=== PATIENT | female | born 1975 | race Caucasian/White ===

== ENCOUNTER 2016-07-29 16:02 | Emergency (ER) | payer SELFPAY ==
[2016-07-29] MEDS ORDERED: Acetaminophen/oxyCODONE 325-5 MG Tab PO STA (16:12)
[2016-07-29] MEDS ORDERED: Aspirin 81 MG Tab.Chew PO ONE (16:13)
[2016-07-29] MEDS ORDERED: Ondansetron 4 MG Tab.DIS PO ONE ×2 (16:14→17:07)
[2016-07-29] MEDS ORDERED: Aluminum Hydroxide/Magnesium Hydroxide Susp 30 ML Cup PO STA (16:14)
--- NOTE | 2016-07-29 16:20 | EDM.PDOC ---
ED HPI GENERAL MEDICAL PROBLEM - General Chief Complaint: Cardiovascular Problem Stated Complaint: CHEST PAIN Time Seen by Provider: 07/29/16 16:10 Source of Information: Reports: Patient, Old Records History Limitations: Reports: No Limitations - History of Present Illness INITIAL COMMENTS - FREE TEXT/NARRATIVE: 41 yo female developed mild sternal pain earlier today. Took a nap and her pain seemed a little better. Since then the pain has worsened. Is not SOB, or diaphoretic, but does have some nausea without vomiting. Took ibuprofen 800 mg po about an hour ago without relief. No cardiac history. No calf pain. Pain is worse with pressing over sternum or taking deep breaths. Onset: Today Onset Date: 07/29/16 Duration: Hour(s):, Getting Worse Location: Reports: Chest Quality: Reports: Ache Severity: Moderate Improves with: Reports: Rest Worsens with: Reports: Other (breathing or pressing on area. ) Context: Reports: Other (unknown) Associated Symptoms: Reports: Chest Pain, Nausea/Vomiting (No vomiting.). 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 - Past Surgical History Female Surgical History: Reports: Section, Hysterectomy Social & Family History - Family History Musculoskeletal: Reports: None Neurological: Reports: None Oncologic: Reports: None - Tobacco Use Smoking Status *Q: Current Every Day Smoker Years of Tobacco use: 20 Packs/Tins Daily: 1 - Alcohol Use Days Per Week of Alcohol Use: 0 - Recreational Drug Use Recreational Drug Use: No ED ROS GENERAL - Review of Systems Review Of Systems: See Below Constitutional: Reports: No Symptoms HEENT: Reports: No Symptoms Respiratory: Reports: No Symptoms Cardiovascular: Reports: Chest Pain Endocrine: Reports: No Symptoms GI/Abdominal: Reports: Nausea. Denies: Abdominal Pain, Black Stool, Bloody Stool, Hematemesis, Hematochezia, Vomiting : Reports: No Symptoms Musculoskeletal: Reports: No Symptoms Skin: Reports: No Symptoms Neurological: Reports: No Symptoms Psychiatric: Reports: No Symptoms ED EXAM, GENERAL - Physical Exam Exam: See Below Exam Limited By: No Limitations General Appearance: Alert, WD/WN, No Apparent Distress, Anxious, Obese Eye Exam: Bilateral Eye: Normal Inspection Ears: Normal External Exam, Normal Canal, Hearing Grossly Normal Ear Exam: Bilateral Ear: Auricle Normal, Canal Normal Nose: Normal Inspection, Normal Mucosa, No Blood Throat/Mouth: Normal Inspection, Normal Lips, Normal Teeth, Normal Oropharynx, Normal Voice, No Airway Compromise Head: Atraumatic, Normocephalic Neck: Normal Inspection, Supple, Non-Tender Respiratory/Chest: No Respiratory Distress, Lungs Clear, Normal Breath Sounds, No Accessory Muscle Use, Other (sternal tenderness noted.). No: Chest Non- Tender Cardiovascular: Regular Rate, Rhythm GI/Abdominal: Normal Bowel Sounds, Soft, Non-Tender, No Distention Back Exam: Normal Inspection. No: CVA Tenderness (R), CVA Tenderness (L) Extremities: Normal Inspection, Normal Range of Motion, Non-Tender, Pedal Edema (Trace bilateral ankle edema) Neurological: Alert, Oriented, CN II-XII Intact, Normal Cognition, Normal Gait, No Motor/Sensory Deficits Psychiatric: Anxious, Tearful Skin Exam: Warm, Dry, Intact, Normal Color, No Rash Lymphatic: No Adenopathy EKG INTERPRETATION EKG Date: 07/29/16 Time: 16:05 Rhythm: NSR Rate (beats/min): 95 [place]: normal P-wave: present QRS: normal ST-T: normal QT: normal Comparison: NA - no prior EKG Course - Vital Signs Text/Narrative:: Percocet 1 po, ASA 324 mg po, Maalox 30 ml po, Zofran ODT 4 mg SL-nausea better , chest pain partially resolved. Last Recorded V/S: Last Vital Signs Temp 36.3 C 07/29/16 16:05 Pulse 97 07/29/16 16:38 Resp 12 07/29/16 16:38 BP 137/71 07/29/16 16:38 Pulse Ox 99 07/29/16 16:38 - Orders/Labs/Meds Orders: Active Orders 24 hr Category Date Time Status Cardiac Monitoring [RC] .As Directed Care 07/29/16 16:13 Active EKG Documentation Completion [RC] ASDIRECTED Care 07/29/16 16:05 Active D-DIMER QUANTITATIVE [COAG] Stat Lab 07/29/16 16:35 Received TROPONIN I [CHEM] Stat Lab 07/29/16 16:15 Received EKG 12 Lead [EK] Routine Ther 07/29/16 16:04 Ordered Meds: Medications Discontinued Medications Generic Name Dose Route Start Last Admin Trade Name Freq PRN Reason Stop Dose Admin Al Hydroxide/Mg Hydroxide 30 ml 07/29/16 16:14 07/29/16 16:21 Mag-Al Susp PO 07/29/16 16:15 30 ml NOW STA Administration Aspirin 324 mg 07/29/16 16:13 07/29/16 16:22 Aspirin PO 07/29/16 16:14 324 mg ONETIME ONE Administration Ondansetron HCl 4 mg 07/29/16 16:14 07/29/16 16:21 Zofran Odt PO 07/29/16 16:15 4 mg ONETIME ONE Administration Oxycodone/Acetaminophen 1 tab 07/29/16 16:12 07/29/16 16:20 Percocet 325-5 Mg PO 07/29/16 16:13 1 tab ONETIME STA Administration Departure - Departure Time of Disposition: 17:00 Disposition: Still A Patient 30 Condition: fair Clinical Impression: Acute costochondritis - My Orders Last 24 Hours: My Active Orders 07/29/16 16:04 EKG 12 Lead [EK] Routine 07/29/16 16:05 EKG Documentation Completion [RC] ASDIRECTED 07/29/16 16:13 Cardiac Monitoring [RC] .As Directed 07/29/16 16:15 TROPONIN I [CHEM] Stat 07/29/16 16:35 D-DIMER QUANTITATIVE [COAG] Stat - Assessment/Plan Last 24 Hours: My Active Orders 07/29/16 16:04 EKG 12 Lead [EK] Routine 07/29/16 16:05 EKG Documentation Completion [RC] ASDIRECTED 07/29/16 16:13 Cardiac Monitoring [RC] .As Directed 07/29/16 16:15 TROPONIN I [CHEM] Stat 07/29/16 16:35 D-DIMER QUANTITATIVE [COAG] Stat
[2016-07-29] MEDS ORDERED: Acetaminophen/oxyCODONE 325-5 MG Tab PO ONE (17:07)
[2016-07-29 17:25] VITALS: BP 147/83
== END 2016-07-29 17:20 | disposition home or self-care (01) ==
LOC: FB.ED 16:02
DX: M94.0 Chondrocostal junction syndrome [Tietze] (principal); F17.210 Nicotine dependence, cigarettes, uncomplicated; Z88.0 Allergy status to penicillin; Z88.8 Allergy status to other drugs, medicaments and biological substances; Z87.442 Personal history of urinary calculi; Z90.710 Acquired absence of both cervix and uterus
CPT/HCPCS: 36415; 84484; 85379; 93005; 99285; A9270; 99283

== ENCOUNTER 2016-07-30 14:25 | Emergency (ER) | payer SELFPAY ==
[2016-07-30] MEDS ORDERED: LORazepam 1 MG Tab PO STA (14:31)
[2016-07-30] MEDS ORDERED: Ketorolac 60 MG/2 ML SDV IM ONE (14:34)
[2016-07-30] MEDS ORDERED: Albuterol/Ipratropium 3.0-0.5 MG/3 ML Neb Soln NEB ONE (14:51)
[2016-07-30] MEDS ORDERED: HYDROmorphone 2 MG/ML SDV IM ONE (15:31)
[2016-07-30 16:00] VITALS: BP 161/83
[2016-07-30] MEDS ORDERED: predniSONE 20 MG Tab PO ONE (16:09)
[2016-07-30] MEDS ORDERED: ALPRAZolam 0.5 MG Tab PO ONE (16:09)
--- NOTE | 2016-07-31 11:30 | CR ---
INDICATION: Cough, chest pain. CHEST: PA and lateral views of the chest revealed overlying EKG lead snaps. The heart, mediastinum, and bony thorax were unremarkable. An active infiltrate or effusion was not identified. There is evidence of exogenous obesity. IMPRESSION: 1. No acute process. 2. Exogenous obesity. MTDD
--- NOTE | 2016-07-31 16:13 | ER ---
DATE SEEN: 07/30/2016 CHIEF COMPLAINT: Chest pain. HISTORY OF PRESENT ILLNESS: A 41-year-old female complaining of chest pain. This has been on for 2 days. She was here yesterday for the same reason. Pain is moderate to severe, associated with some tightness and worse with breathing deeply. No trauma. She has taken Percocet with minimal relief. REVIEW OF SYSTEMS: Denies any fever or chills. She has been under a lot of stress lately due to two jobs. SOCIAL HISTORY: Smoker. ALLERGIES: Penicillin and Benadryl. PHYSICAL EXAMINATION: VITAL SIGNS: Blood pressure is 161/83, pulse is 92, and oxygenation 99% on room air. ENT: Negative. CHEST: Reproducible tenderness. LUNGS: Clear with the exception of wheezing in the lower bases posteriorly. MENTAL STATUS: Anxious, tearful, but answers question appropriately. SKIN: There is red erythematous rash noted in the arms and the upper neck area. LAB STUDIES: She had normal labs including a negative troponin and D-dimer. Chest x-ray was unremarkable. EKG normal. IMPRESSION: 1. Chest wall pain. 2. Anxiety disorder. PLAN: 1. Ketorolac and Dilaudid IM. 2. Lorazepam 1 mg orally. I reviewed the possibilities of the fibromyalgia or anxiety. Initially she was resistant to this diagnosis and was upset with me, but after a thorough explanation that I did not find any organic cause of the pain, she slowly accepted it, and I sent her home on Xanax 0.5 mg b.i.d. p.r.n. and prednisone 20 mg b.i.d. Work note was given. Time seen was 1500 hours. She was advised to see her doctor tomorrow. Return with any worsening symptoms. /[id number] DAVID/HEATHER MORGAN
== END 2016-07-30 16:25 | disposition home or self-care (01) ==
LOC: FB.ED 14:25
DX: R07.89 Other chest pain (principal); F41.9 Anxiety disorder, unspecified; Z88.0 Allergy status to penicillin; Z88.8 Allergy status to other drugs, medicaments and biological substances; Z87.891 Personal history of nicotine dependence
CPT/HCPCS: 36415; 71020; 80048; 84484; 85025; 85379; 93005; 94664; 96372; 99285; A9270; J1170; J1885; J7620; 99284

== ENCOUNTER 2016-10-27 08:25 | Day surgery (SDC) | payer SELFPAY ==
[2016-10-27] MEDS ORDERED: Lactated Ringers 1,000 ML IV SCH (08:30)
[2016-10-27] MEDS ORDERED: Lidocaine 2% 100 MG/5 ML Syringe IVPUSH ONE (10:30)
[2016-10-27] MEDS ORDERED: Midazolam 1 MG/ML 2 ML SDV IV ONE (10:30)
[2016-10-27] MEDS ORDERED: Propofol 200 MG/20 ML SDV IV ONE (10:30)
[2016-10-27 12:08] VITALS: BP 128/80
--- NOTE | 2016-10-30 07:41 | PCM.OPNOTE ---
- General Post-Op/Procedure Note Date of Surgery/Procedure: 10/27/16 Operative Procedure(s): egd with bx Findings: gastroduodenitis Pre Op Diagnosis: epigastric abd pain Post-Op Diagnosis: gastroduodenitis Anesthesia Technique: AMIRA Primary Surgeon: Earl Khan Anesthesia Provider: Bess Prater Pathology: stomach and duodenum Complications: None Condition: Good Free Text/Narrative:: see dictation
--- NOTE | 2016-10-30 08:32 | OR ---
DATE OF OPERATION: 10/27/2016 SURGEON: Earl Khan MD PREOPERATIVE DIAGNOSIS: Epigastric right upper quadrant abdominal pain. POSTOPERATIVE DIAGNOSIS: Gastroduodenitis. PROCEDURE PERFORMED: Upper endoscopy with cold forceps biopsy. INDICATIONS FOR PROCEDURE: This is a 41-year-old white female, who presented with the above-mentioned complaint. Her workup to date has been negative. She has been offered and accepted an EGD. DESCRIPTION OF PROCEDURE: After an excellent IV sedation was administered, the bite block was inserted. Flexible endoscope was passed without difficulty down the patient's esophagus and stomach. The stomach was insufflated and scope was passed through the pylorus to the second portion of the duodenum and slowly withdrawn. The following findings were noted. In the duodenum, especially in the first portion marked duodenitis, biopsies were taken. Stomach, marked gastritis, biopsies were taken as well as GE junction measured 40 cm and the esophagus was essentially unremarkable. Stomach was deflated, scope was removed. The patient tolerated the procedure well, and was taken to recovery room in good condition. /[id number] /NAJMAL
== END 2016-10-27 11:38 | disposition home or self-care (01) ==
LOC: FB.SDS 08:25
PROVIDERS: ATTEND Surgery
DX: K29.50 Unspecified chronic gastritis without bleeding (principal); J45.909 Unspecified asthma, uncomplicated; Z88.0 Allergy status to penicillin; Z88.2 Allergy status to sulfonamides; Z88.8 Allergy status to other drugs, medicaments and biological substances; F17.210 Nicotine dependence, cigarettes, uncomplicated; Z79.899 Other long term (current) drug therapy
CPT/HCPCS: 00740; 43239; 88305; 88342; J2250; J2704; J7120

== ENCOUNTER 2016-11-22 07:17 | Day surgery (SDC) | payer SELFPAY ==
[~2016-11-22 07:17] MED LIST: Lactated Ringers 1,000 ML IV SCH
[2016-11-22] MEDS ORDERED: Ondansetron 4 MG/2 ML SDV IVPUSH ONE (08:40)
[2016-11-22] MEDS ORDERED: Propofol 200 MG/20 ML SDV IV ONE (08:40)
[2016-11-22] MEDS ORDERED: Midazolam 1 MG/ML 2 ML SDV IV ONE (08:40)
--- NOTE | 2016-11-22 09:16 | PCM.OPNOTE ---
- General Post-Op/Procedure Note Date of Surgery/Procedure: 11/22/16 Operative Procedure(s): c scope with bx Findings: transverse colon polyp Pre Op Diagnosis: hx of abd pain and cramping Post-Op Diagnosis: transverse colon polyp Anesthesia Technique: MAC Primary Surgeon: Earl Khan Anesthesia Provider: Lora Martinez Pathology: random colon bx transverse colon polyp Complications: None Condition: Good Free Text/Narrative:: see dictation
[2016-11-22 10:01] VITALS: BP 131/87
--- NOTE | 2016-11-22 13:22 | OR ---
DATE OF OPERATION: 11/22/2016 SURGEON: Earl Khan MD PROCEDURE PERFORMED: Colonoscopy with cold forceps biopsy. PREOPERATIVE DIAGNOSIS: History of crampy abdominal pain. POSTOPERATIVE DIAGNOSIS: Transverse colon polyp. Otherwise normal colonic exam. INDICATIONS FOR PROCEDURE: This is a 41-year-old white female, who is referred with a history of abdominal pain which is crampy in nature. It is located primarily in the left upper quadrant. She has undergone a previous upper endoscopy which has demonstrated chronic gastritis. This has been treated for over a month and she continues to have a crampy abdominal pain. She was therefore offered and accepted a colonoscopy. DESCRIPTION OF PROCEDURE: After an excellent IV sedation was administered, a digital rectal exam was performed. No marked abnormality was noted. The flexible colonoscope was inserted and easily advanced to the cecum without difficulty. The following findings were noted. Ascending colon, unremarkable. Random biopsies taken. Transverse colon; in the proximal transverse colon, a small polypoid lesion was biopsied with cold biopsy forceps and sent for permanent, otherwise normal. Random biopsies were taken as well. Descending colon, unremarkable. Random biopsies were taken. Sigmoid and rectum were unremarkable. Random biopsies were taken. The colon was deflated as the scope was removed. The patient tolerated the procedure well and was taken to recovery in good condition. /[id number] /MODL
== END 2016-11-22 10:13 | disposition home or self-care (01) ==
LOC: FB.SDS 07:17
PROVIDERS: ATTEND Surgery
DX: K63.5 Polyp of colon (principal); K29.30 Chronic superficial gastritis without bleeding; J45.909 Unspecified asthma, uncomplicated; F17.210 Nicotine dependence, cigarettes, uncomplicated; Z79.899 Other long term (current) drug therapy; Z88.0 Allergy status to penicillin; Z88.2 Allergy status to sulfonamides; Z88.8 Allergy status to other drugs, medicaments and biological substances; Z90.49 Acquired absence of other specified parts of digestive tract; Z90.710 Acquired absence of both cervix and uterus; Z90.721 Acquired absence of ovaries, unilateral
CPT/HCPCS: 00810; 45380; 88305; J2250; J2405; J2704; J7120

== ENCOUNTER 2019-01-04 22:35 | Emergency (ER) | payer MEDICAID ==
--- NOTE | 2019-01-04 23:56 | EDM.PDOC ---
ED HPI GENERAL MEDICAL PROBLEM - General Chief Complaint: General Stated Complaint: JAW WONT CLOSE Time Seen by Provider: 01/04/19 23:54 Source of Information: Reports: Patient History Limitations: Reports: No Limitations - History of Present Illness INITIAL COMMENTS - FREE TEXT/NARRATIVE: 43-year-old female who reports at approximately 9 AM today she was chewing something and she felt a pop in her right jaw joint area and following this she felt that she could open her jaw but she could not close her mouth completely and it really only seem to be affecting the right side and not the left side. She continued to and over her jaw and she reports that progressively through the day she had increasing pain in her right jaw area that was worse with palpation and particularly worse when she tried to completely close her jaw. She rated the pain as a 10 over 10 at its worst but a 5/10 now. She felt like there was some swelling in the area. Since the pain occurred, it is really just not gone away and she is finding it difficult to talk and to chew. No direct trauma to the area. No nausea or vomiting. No chest pain. No shortness of breath. There are no other associated signs or symptoms. There are no other modifying factors. 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 Right Jaw Pain Score (Numeric/FACES): 5 - Related Data Allergies Allergy/AdvReac Type Severity Reaction Status Date / Time diphenhydramine Allergy Respiratory Verified 01/04/19 22:57 [From Benadryl Allergy] Distress Penicillins Allergy Tachycardia Verified 01/04/19 22:57 Sulfa (Sulfonamide Allergy Rash Verified 01/04/19 22:57 Antibiotics) Home Meds: Home Meds Dicyclomine [Bentyl] 10 mg PO QIDACANDBED 11/21/16 [History] Omeprazole 20 mg PO BEDTIME 11/21/16 [History] Sucralfate [Carafate] 1 gm PO QID 11/21/16 [History] Past Medical History HEENT History: Reports: Impaired Vision Respiratory History: Reports: Asthma Genitourinary History: Reports: Other (See Below) Other Genitourinary History: KIDNEY STONES 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 - Infectious Disease History Infectious Disease History: Reports: Chicken Pox - Past Surgical History Head Surgeries/Procedures: Reports: None GI Surgical History: Reports: Appendectomy, Cholecystectomy, Other (See Below) Other GI Surgeries/Procedures: EXPLORATORY LAPAROTOMY Female Surgical History: Reports: Hysterectomy, Oophorectomy Social & Family History - Family History Family Medical History: Noncontributory Musculoskeletal: Reports: None Neurological: Reports: None Oncologic: Reports: None - Tobacco Use Smoking Status *Q: Current Every Day Smoker Years of Tobacco use: 25 Packs/Tins Daily: 1 - Caffeine Use Caffeine Use: Reports: Coffee Other Caffeine Use: daily - Alcohol Use Alcohol Use History: No - Recreational Drug Use Recreational Drug Use: No - Living Situation & Occupation Living situation: Reports: , with Spouse Occupation: Employed ED ROS GENERAL - Review of Systems Review Of Systems: See Below Constitutional: Reports: No Symptoms HEENT: Reports: Other (Right TMJ pain) Respiratory: Reports: No Symptoms Cardiovascular: Reports: No Symptoms Endocrine: Reports: No Symptoms GI/Abdominal: Reports: No Symptoms : Reports: No Symptoms Musculoskeletal: Reports: No Symptoms Skin: Reports: No Symptoms Neurological: Reports: No Symptoms Hematologic/Lymphatic: Reports: No Symptoms Immunologic: Reports: No Symptoms ED EXAM, GENERAL - Physical Exam Exam: See Below Exam Limited By: No Limitations General Appearance: Alert, WD/WN, Mild Distress Eye Exam: Bilateral Eye: EOMI, Normal Inspection, PERRL Ears: Normal External Exam, Hearing Grossly Normal Ear Exam: Bilateral Ear: Auricle Normal Nose: Normal Inspection, Normal Mucosa, No Blood Throat/Mouth: Normal Inspection, Normal Lips, Normal Voice, No Airway Compromise , Other (Tenderness over the right TMJ area. No clicking or crepitus noted.) Head: Atraumatic, Normocephalic Neck: Normal Inspection, Supple, Non-Tender, Full Range of Motion Respiratory/Chest: No Respiratory Distress, Lungs Clear, Normal Breath Sounds, No Accessory Muscle Use Cardiovascular: Normal Peripheral Pulses, Regular Rate, Rhythm, No JVD Peripheral Pulses: 2+: Radial (L), Radial (R) GI/Abdominal: Normal Bowel Sounds, Soft, Non-Tender, No Mass Back Exam: Normal Inspection, Full Range of Motion Extremities: Normal Inspection, Normal Range of Motion, No Pedal Edema, Normal Capillary Refill Neurological: Alert, Oriented, CN II-XII Intact, Normal Cognition, No Motor/ Sensory Deficits Skin Exam: Warm, Dry, Intact, Normal Color, No Rash Lymphatic: No Adenopathy ED GENERAL MEDICAL PROCEDURES - Additional/Other Procedure(s) Other (Free Text) Procedure(s): After examining the patient and after informed verbal consent was obtained from the patient, I did perform standard technique for TMJ reduction. I did not feel any click or pop. Patient tolerated this well and after the procedure she did feel some decrease in the pain in her right TMJ. There did not appear to be any change in her teeth alignment and they appeared to align normally. There didn't appear to be some mild swelling over the right TMJ area and there was definite pain with palpation here. I will send the patient for CT of the TMJ area. Course - Vital Signs Last Recorded V/S: Last Vital Signs Temp 35.9 C 01/04/19 22:45 Pulse 93 01/05/19 01:06 Resp 18 01/05/19 01:06 BP 139/104 H 01/05/19 01:06 Pulse Ox 99 01/05/19 01:06 - Orders/Labs/Meds Orders: Active Orders 24 hr Category Date Time Status Max Facial Sinus wo Cont [CT] Stat Exams 01/05/19 00:07 Taken - Radiology Interpretation Free Text/Narrative:: CT scan of facial bones was performed and there is a normal appearance of the TMJ joints bilaterally. There was normal alignment and no evidence of dislocation or subluxation. There were no abnormal soft tissue swellings or masses. It was an essentially normal exam. This was per the [facility] radiologist. - Re-Assessments/Exams Free Text/Narrative Re-Assessment/Exam: 01/05/19 00:55: The CT scan of the patient's face showed no TMJ dislocation or any other acute abnormality. The patient is having pain in the area of her right TMJ joint and there is pain with palpation over that area. There does not appear to be any evidence of infection. This appears to be some residual pain and inflammation from a probable TMJ dislocation or subluxation earlier that has reduced spontaneously. I have recommended that the patient take ibuprofen 800 mg by mouth 3 times a day for the next 3-5 days. She should also apply ice packs intermittently to the area and she should stick with a soft diet and avoid chewing and excessive talking for the next few days. She should follow-up with either her dentist or an oral surgeon about her TMJ problem. Departure - Departure Time of Disposition: 01:05 Disposition: Home, Self-Care 01 Condition: Good Clinical Impression: Sprain of right temporomandibular joint Qualifiers: Encounter type: initial encounter Qualified Code(s): S03.41XA - Sprain of jaw, right side, initial encounter Temporomandibular joint (TMJ) pain Qualifiers: Laterality: right Qualified Code(s): M26.621 - Arthralgia of right temporomandibular joint - Discharge Information Instructions: RICE Therapy for Routine Care of Injuries, [id number] Referrals: Mehrdad Ayala MD [Primary Care Provider] - Forms: ED Department Discharge, ED Return to Work/School Form Additional Instructions: The CT scan of your face showed normal alignment of your jaw joint. There was no evidence of infection or other problem that could be causing your pain. I suspect that you had either a dislocation or a partial dislocation of your right jaw joint and it went back into place on its own. You are having residual pain related to this. You should take ibuprofen 800 mg by mouth times a day for the next 3-5 days. Apply ice packs intermittently to the right jaw for the next few days. Stick with soft food and avoid excessive chewing or talking for the next 2 days. Follow-up with your dentist or an oral surgeon. - My Orders Last 24 Hours: My Active Orders 01/05/19 00:07 Max Facial Sinus wo Cont [CT] Stat - Assessment/Plan Last 24 Hours: My Active Orders 01/05/19 00:07 Max Facial Sinus wo Cont [CT] Stat
[2019-01-05 01:27] VITALS: BP 139/104; PULSE 93
== END 2019-01-05 01:19 | disposition home or self-care (01) ==
LOC: FB.ED 22:35
DX: S03.41XA Sprain of jaw, right side, initial encounter (principal); M26.621 Arthralgia of right temporomandibular joint; F17.210 Nicotine dependence, cigarettes, uncomplicated; J45.909 Unspecified asthma, uncomplicated; E11.9 Type 2 diabetes mellitus without complications; E66.9 Obesity, unspecified; Z68.41 Body mass index [BMI] 40.0-44.9, adult; Z88.0 Allergy status to penicillin; Z88.2 Allergy status to sulfonamides; Z88.8 Allergy status to other drugs, medicaments and biological substances
CPT/HCPCS: 21480; 70486; 99283-25

== ENCOUNTER 2022-08-08 16:06 | Emergency (ER) | payer BC, MEDICAID ==
[2022-08-08 16:53] VITALS: BP 139/101; PULSE 111
[2022-08-08] MEDS ORDERED: Sodium Chloride 0.9% 1,000 ML IV ONE (17:18)
[2022-08-08 17:42] LABS: BASOPHILS PERCENT AUTO 0.5 % (0.2-1.5); EOSINOPHILS ABSOLUTE AUTO 0.1 x10-3/uL (0.0-0.8); EOSINOPHILS PERCENT AUTO 1.4 % (0.6-8.1); HEMATOCRIT 45.3 % (34.2-48.2); HEMOGLOBIN 15.2 g/dL (11.4-15.5); LYMPHOCYTES ABSOLUTE AUTO 2.1 x10-3/uL (1.0-4.4); MEAN CORPUSCULAR HGB CONC 33.4 g/dL (31.9-34.8); MEAN CORPUSCULAR VOLUME 89.8 fL (76.7-100.5); MEAN PLATELET VOLUME 9.5 fL (7.1-12.4); MONOCYTES ABSOLUTE AUTO 0.5 x10-3/uL (0.3-1.0); MONOCYTES PERCENT AUTO 5.9 % (4.4-15.7); NEUTROPHILS PERCENT AUTO 68.2 % (30.8-76.2); PLATELET COUNT,PLT 269 x10(3)uL (151-488); RED BLOOD CELL COUNT 5.05 x10(6)uL (3.60-5.20); RED CELL DISTRIBUTION WIDTH 13.4 % (12.3-16.5); WHITE BLOOD CELL COUNT,WBC 8.8 x10-3/uL (3.0-10.3)
[2022-08-08 17:44] LABS: BLOOD UREA NITROGEN,BUN 20 mg/dL (7-18); CALCIUM 9.1 mg/dL (8.6-10.2); CARBON DIOXIDE,CO2 24 mmol/L (21-32); CHLORIDE,CL 100 mmol/L (100-110); EST CRCL DRUG DOSING (CG) 72.68 mL/min; ESTIMATED GFR 70 mL/min (>60); GLUCOSE RANDOM 312 mg/dL (80-116); SODIUM,NA 137 mmol/L (135-145)
[2022-08-08 17:50] LABS: A/G RATIO 0.9; ALANINE AMINOTRANSFERASE,ALT 123 U/L (12-36); ALBUMIN 3.6 g/dL (3.5-5.2); ALKALINE PHOSPHATASE 89 IU/L (56-112); ASPARTATE AMNIOTRANSFERASE,AST 100 IU/L (5-25); BILIRUBIN TOTAL 0.6 mg/dL (0.1-1.3); PROTEIN TOTAL,TP 7.5 g/dL (6.0-8.0)
[2022-08-08 17:52] LABS: C-REACTIVE PROTEIN 0.6 mg/dL (0.5-0.9); TROPONIN I 4.4 pg/mL (4.0-60.3)
[2022-08-08 18:48] LABS: HEMOGLOBIN A1C 10.4 % (<5.7)
[2022-08-08 18:50] LABS: APPEARANCE,URINE CLEAR (CLEAR); BACTERIA,URINE FEW (NS); BILIRUBIN,URINE NEGATIVE (NEGATIVE); COLOR,URINE YELLOW (YELLOW); GLUCOSE,URINE >1000 mg/dL (NORMAL); KETONES,URINE 50 mg/dL (NEGATIVE); LEUKOCYTE ESTERASE,URINE NEGATIVE (NEGATIVE); NITRITE,URINE NEGATIVE (NEGATIVE); OCCULT BLOOD,URINE NEGATIVE (NEGATIVE); PROTEIN,URINE NEGATIVE (NEGATIVE); RBC,URINE 0-5 (0-5); SQUAMOUS EPITHELIAL CELLS,UR FEW (NS,R,O); UROBILINOGEN,URINE NORMAL (NEGATIVE); WBC,URINE 0-5 (0-5)
== END 2022-08-08 19:37 | disposition home or self-care (01) ==
LOC: FB.ED 16:06
DX: F43.22 Adjustment disorder with anxiety (principal); E11.65 Type 2 diabetes mellitus with hyperglycemia; F43.9 Reaction to severe stress, unspecified; E86.0 Dehydration; R79.89 Other specified abnormal findings of blood chemistry; I10 Essential (primary) hypertension; J45.909 Unspecified asthma, uncomplicated; E11.9 Type 2 diabetes mellitus without complications; E66.9 Obesity, unspecified; Z68.38 Body mass index [BMI] 38.0-38.9, adult; Z88.8 Allergy status to other drugs, medicaments and biological substances; Z88.0 Allergy status to penicillin; Z88.2 Allergy status to sulfonamides; Z79.899 Other long term (current) drug therapy; Z87.891 Personal history of nicotine dependence; Z20.822 Contact with and (suspected) exposure to COVID-19
CPT/HCPCS: 36415; 80053; 81001; 83036; 83605; 83735; 84484; 85025; 85379; 86140; 87635; 93005; 96360; 99283; J7030; U0002